=== PATIENT | female | born 1985 | race Caucasian/White ===

== ENCOUNTER 2017-06-13 07:18 | Inpatient (IN) | payer BC ==
[2017-06-13] MEDS ORDERED: Sodium Chloride 0.9% 10 ML Syringe FLUSH PRN (07:48)
[2017-06-13] MEDS ORDERED: Lactated Ringers 1,000 ML IV SCH (08:00)
[2017-06-13] MEDS ORDERED: Lidocaine 1% 50 ML MDV INJECT ONE (09:19)
[2017-06-13] MEDS ORDERED: Oxytocin/Lactated Ringers 10 UNIT/1,000 ML BAG IV SCH ×2 (09:30→09:45)
[2017-06-13] MEDS ORDERED: Nalbuphine 20 MG/1 ML Amp IVPUSH ONE (16:38)
[2017-06-13] MEDS ORDERED: Nalbuphine 20 MG/1 ML Amp ONE (16:40)
[2017-06-13] MEDS ORDERED: Witch Hazel Medicated Pads 100/Jar TOP PRN (17:50)
[2017-06-13] MEDS ORDERED: Lanolin 100% Cream 7 GM Tube TOP PRN (17:50)
[2017-06-13] MEDS ORDERED: Docusate Sodium 100 MG Cap PO PRN (17:50)
[2017-06-13] MEDS ORDERED: Benzocaine/Menthol 20%-0.5% Spray 56 GM Canister TOP PRN (17:50)
[2017-06-13] MEDS: Ibuprofen 600 MG Tab PO PRN ×2 (18:09→23:37)
[2017-06-14] MEDS: Ibuprofen 600 MG Tab PO PRN (06:48)
--- NOTE | 2017-06-14 07:12 | PCM.DCSUM1 ---
Discharge Summary - Hospital Course Brief History: Admitted for induction of labor. Routine delivery - Discharge Data Discharge Date: 06/14/17 Discharge Disposition: Home, Self-Care 01 Condition: Good - Patient Instructions Diet: Usual Diet as Tolerated Activity: No Strenuous Activities Driving: May Drive Today Notify Provider of: Fever, Increased Pain, Swelling and Redness, Drainage, Nausea and/or Vomiting - Discharge Plan Home Medications: Home Meds Pnv No.122/Iron/Folic Acid [ Multi Tablet] 1 each PO DAILY 05/11/17 [ History] Referrals: Elysia Castañeda MD [Primary Care Provider] - (5-6 weeks) - Discharge Summary/Plan Comment DC Time >30 min.: No - General Info Date of Service: 06/14/17 Functional Status: Reports: Pain Controlled - Review of Systems General: Reports: No Symptoms HEENT: Reports: No Symptoms Pulmonary: Reports: No Symptoms Cardiovascular: Reports: No Symptoms Gastrointestinal: Reports: No Symptoms Genitourinary: Reports: No Symptoms Musculoskeletal: Reports: No Symptoms Skin: Reports: No Symptoms Neurological: Reports: No Symptoms Psychiatric: Reports: No Symptoms - Patient Data Vitals - Most Recent: Last Vital Signs Temp 36.8 C 06/14/17 04:00 Pulse 69 06/14/17 03:48 Resp 16 06/14/17 04:00 BP 112/75 06/14/17 03:48 Pulse Ox 98 06/14/17 03:48 Weight - Most Recent: 84.822 kg Lab Results - Last 24 hrs: Laboratory Results - last 24 hr 06/13/17 06/13/17 Range/Units 08:00 08:00 WBC 6.61 (3.98-10.04) K/mm3 RBC 3.82 L (3.98-5.22) M/mm3 Hgb 10.7 L (11.2-15.7) gm/L Hct 32.3 L (34.1-44.9) % MCV 84.6 (79.4-94.8) fl MCH 28.0 (25.6-32.2) pg MCHC 33.1 (32.2-35.5) g/dl RDW Std Deviation 40.4 (36.4-46.3) fL Plt Count 154 L (182-369) K/mm3 MPV 11.7 (9.4-12.3) fl Blood Type A POSITIVE Gel Antibody Screen Negative Med Orders - Current: Current Medications Benzocaine/Menthol (Dermoplast Pain Relief [place]) 0 gm TOP ASDIRECTED PRN PRN Reason: Perineal Comfort Measure Last Admin: 06/13/17 18:10 Dose: 1 applic Docusate Sodium (Colace) 100 mg PO BID PRN PRN Reason: Constipation Emollient Ointment (Lansinoh Hpa) 0 gm TOP ASDIRECTED PRN PRN Reason: Sore Nipples Ibuprofen (Motrin) 600 mg PO Q6H PRN PRN Reason: Mild pain or fever Last Admin: 06/14/17 06:48 Dose: 600 mg Witch Nasreen (Tucks) 1 pad TOP ASDIRECTED PRN PRN Reason: Hemorrhoid pain Last Admin: 06/13/17 18:10 Dose: 1 applic Discontinued Medications Lactated Ringer's (Ringers, Lactated) 1,000 mls @ 100 mls/hr IV ASDIRECTED BRENNAN Last Admin: 06/13/17 09:52 Dose: 100 mls/hr Oxytocin/Lactated Ringer's (Pitocin In Lr 10 Units/1,000 Ml) 10 unit in 1,000 mls @ 500 mls/hr IV TITRATE BRENNAN PRN Reason: Protocol Oxytocin/Lactated Ringer's (Pitocin In Lr 10 Units/1,000 Ml) 10 unit in 1,000 mls @ 12 mls/hr IV TITRATE BRENNAN; 2 MUNITS/MIN PRN Reason: Protocol Last Titration: 06/13/17 16:54 Dose: 3 munits/min, 18 mls/hr Lidocaine HCl (Xylocaine 1%) 50 ml INJECT ONETIME ONE Stop: 06/13/17 09:20 Last Admin: 06/14/17 06:20 Dose: Not Given Nalbuphine HCl (Nubain) 10 mg IVPUSH ONETIME ONE Stop: 06/13/17 16:39 Last Admin: 06/13/17 16:47 Dose: 10 mg Nalbuphine HCl (Nubain) Confirm Administered Dose 20 mg .ROUTE .STK-MED ONE Stop: 06/13/17 16:41 Last Admin: 06/14/17 06:20 Dose: Not Given Sodium Chloride (Saline Flush) 10 ml FLUSH ASDIRECTED PRN PRN Reason: Keep Vein Open - Exam General: Reports: Alert, Oriented HEENT: Reports: Pupils Equal, Pupils Reactive, EOMI, Mucous Membr. Moist/[place] Neck: Reports: Supple Lungs: Reports: Clear to Auscultation, Normal Respiratory Effort Cardiovascular: Reports: Regular Rate, Regular Rhythm GI/Abdominal Exam: Normal Bowel Sounds, Soft, Non-Tender, No Organomegaly, No Distention, No Abnormal Bruit, No Mass, Pelvis Stable (Female) Exam: Normal External Exam, Normal Speculum Exam, Normal Bimanual Exam Back Exam: Reports: Normal Inspection, Full Range of Motion Extremities: Normal Inspection, Normal Range of Motion, Non-Tender, No Pedal Edema, Normal Capillary Refill Skin: Reports: Warm, Dry, Intact Wound/Incisions: Reports: Healing Well Neurological: Reports: No New Focal Deficit Psy/Mental Status: Reports: Alert, Normal Affect, Normal Mood *Q Meaningful Use (DIS) - VTE *Q VTE Criteria *Q: - Stroke *Q Stroke Criteria *Q: - AMI *Q AMI Criteria *Q:
[2017-06-14 12:12] VITALS: BP 117/76
--- NOTE | 2017-07-04 08:39 | PCM.LDHP ---
L&D History of Present Illness - General Date of Service: 06/13/17 Admit Problem/Dx: Admission Diagnosis/Problem Admission Diagnosis/Problem Labor without complication Source of Information: Patient History Limitations: Reports: No Limitations - History of Present Illness Introduction:: 32 year old female here for induction of labor. Pain Score: 3 Improves with: Reports: None Worsens with: Reports: None Associated Symptoms: Reports: N - Related Data Allergies/Adverse Reactions: Allergies Allergy/AdvReac Type Severity Reaction Status Date / Time No Known Allergies Allergy Verified 05/11/17 13:18 Home Medications: Home Meds Pnv No.122/Iron/Folic Acid [ Multi Tablet] 1 each PO DAILY 05/11/17 [ History] Past Medical History - Past Health History Medical/Surgical History: Denies Medical/Surgical History Respiratory History: Reports: Asthma [employer] History: Reports: Psychiatric History: Reports: Anxiety, Depression Hematologic History: Reports: Anemia Other Hematologic History: Anemia in childhood Social & Family History - Family History Family Medical History: Noncontributory - Tobacco Use Smoking Status *Q: Former Smoker Years of Tobacco use: 1 Packs/Tins Daily: 1 Used Tobacco, but Quit: Yes Month Tobacco Last Used: 10/2016 - Caffeine Use Caffeine Use: Reports: Coffee - Recreational Drug Use Recreational Drug Use: No - Living Situation & Occupation Living situation: Reports: , with Family Occupation: Employed H&P Review of Systems - Review of Systems: Review Of Systems: See Below General: Reports: No Symptoms HEENT: Reports: No Symptoms Pulmonary: Reports: No Symptoms Cardiovascular: Reports: No Symptoms Gastrointestinal: Reports: No Symptoms Genitourinary: Reports: No Symptoms Musculoskeletal: Reports: No Symptoms Skin: Reports: No Symptoms Psychiatric: Reports: No Symptoms Neurological: Reports: No Symptoms Hematologic/Lymphatic: Reports: No Symptoms Immunologic: Reports: No Symptoms L&D Exam - Exam Exam: See Below - Vital Signs Vital Signs: Last Vital Signs Temp 36.7 C 06/14/17 11:54 Pulse 84 06/14/17 11:54 Resp 16 06/14/17 11:54 BP 117/76 06/14/17 11:54 Pulse Ox 97 06/14/17 11:54 Weight: 84.822 kg - OB Specific Contraction Intensity: Mild to Moderate Movement: Active Heart Tones: Present Heart Rate (FHR) Variability: Moderate (6-25 bmp) Presentation: Vertex - Turner Score Turner Score Cervix Position: Midposition Turner Score Consistency: Medium Turner Score Effacement: 51-70% Turner Score Dilation: 3-4 cm - Exam General: Alert, Oriented HEENT: PERRLA, Conjunctiva Clear, EACs Clear, EOMI, Hearing Intact, Mucosa Moist & [place], Nares Patent, Normal Nasal Septum, Posterior Pharynx Clear, TMs Clear Neck: Supple, Trachea Midline Lungs: Clear to Auscultation, Normal Respiratory Effort Cardiovascular: Regular Rate, Regular Rhythm GI/Abdominal Exam: Normal Bowel Sounds, Soft, Non-Tender, No Organomegaly, No Distention, No Abnormal Bruit, No Mass, Pelvis Stable Rectal Exam: Normal Exam, Normal Rectal Tone Genitourinary: Normal external exam, Normal bimanual exam, Normal speculum exam Back Exam: Normal Inspection, Full Range of Motion Extremities: Normal Inspection, Normal Range of Motion, Non-Tender, No Pedal Edema, Normal Capillary Refill Skin: Warm, Dry, Intact Neurological: Cranial Nerves Intact, Reflexes Equal Bilateral Psychiatric: Alert, Normal Affect, Normal Mood - Patient Data Result Diagrams: 06/13/17 08:00 Problem List Initiated/Reviewed/Updated: Yes Assessment/Plan Comment:: Term induction. anesthesia per patient request. Anticipate unless otherwise indicated.
== END 2017-06-14 18:07 | disposition home or self-care (01) | DRG 560 ==
LOC: JD.OB 07:18 → OBSVTOIN 17:12
PROVIDERS: ADMIT Obstetrics & Gynecology; ATTEND Obstetrics & Gynecology
PROC: 10E0XZZ Delivery of Products of Conception, External Approach (ICD-10-PCS; principal; 2017-06-13)
PROC: 3E033VJ Introduction of Other Hormone into Peripheral Vein, Percutaneous Approach (ICD-10-PCS; 2017-06-13)
PROC: 10907ZC Drainage of Amniotic Fluid, Therapeutic from Products of Conception, Via Natural or Artificial Opening (ICD-10-PCS; 2017-06-13)
DX: O80 Encounter for full-term uncomplicated delivery (principal)
CPT/HCPCS: 36415; 59409; 85027; 86762; 86850; 86900; 86901; A9270-GY; J2300; J2590; J7120

== ENCOUNTER 2021-12-08 16:01 | Observation (INO) | payer BC ==
[2021-12-08] MEDS ORDERED: Nalbuphine 10 MG/1 ML Vial IVPUSH PRN (16:16)
[2021-12-08] MEDS ORDERED: Sodium Chloride 0.9% 10 ML Syringe FLUSH PRN (16:16)
[2021-12-08] MEDS ORDERED: Lactated Ringers 1,000 ML IV SCH (16:30)
[2021-12-08] MEDS ORDERED: Misoprostol 200 MCG Tab VAG ONE (17:32)
[2021-12-08 18:26] VITALS: BP 114/66; PULSE 94
[2021-12-08] MEDS: Misoprostol 200 MCG Tab VAG SCH (20:56)
[2021-12-08] MEDS ORDERED: Sodium Chloride 0.9% 10 ML Syringe FLUSH SCH (21:00)
[2021-12-08] MEDS ORDERED: oxyCODONE 5 MG Tab PO PRN (23:04)
[2021-12-09] MEDS ORDERED: diphenhydrAMINE 50 MG/ML SDV IVPUSH PRN (00:06)
[2021-12-09] MEDS ORDERED: ePHEDrine 50 MG/ML SDV IVPUSH PRN (00:06)
[2021-12-09] MEDS ORDERED: fentaNYL 100 MCG/2 ML SDV EPIDUR PRN (00:06)
[2021-12-09] MEDS ORDERED: Bupivacaine/fentaNYL/NS 100 ML Bag EPIDUR PRN (00:06)
[2021-12-09] MEDS: Misoprostol 200 MCG Tab VAG SCH ×2 (00:57→02:50)
[2021-12-09] MEDS ORDERED: Acetaminophen 325 MG Tab PO ONE (02:42)
[2021-12-09] MEDS ORDERED: Bupivacaine 0.25% 10 ML SDV ONE (05:00)
[2021-12-09] MEDS ORDERED: Witch Hazel Medicated Pads 40/Jar TOP PRN (11:21)
[2021-12-09] MEDS ORDERED: Benzocaine/Menthol 20%-0.5% Spray 78 GM Cannister TOP PRN (11:21)
[2021-12-09] MEDS ORDERED: Acetaminophen 325 MG Tab PO PRN (11:21)
[2021-12-09] MEDS ORDERED: Ibuprofen 600 MG Tab PO PRN (11:21)
[2021-12-09] MEDS ORDERED: Hydrocortisone Acetate 25 MG Supp RECTAL PRN (11:21)
[2021-12-09] MEDS ORDERED: Measles, Mumps & Rubella Vaccine 0.5 ML SDV SUBCUT ONE (11:30)
== END 2021-12-09 09:15 | disposition home or self-care (01) ==
LOC: JD.OBCHECK 16:01 → JD.OB 16:08 → JD.OBCHECK 16:27
PROVIDERS: ADMIT Obstetrics & Gynecology; ATTEND Obstetrics & Gynecology
DX: O03.9 Complete or unspecified spontaneous abortion without complication (principal); Z87.891 Personal history of nicotine dependence; Z86.59 Personal history of other mental and behavioral disorders; Z20.822 Contact with and (suspected) exposure to COVID-19
CPT/HCPCS: 36415; 85025; 86850; 86900; 86901; 87635; 96374; A9270; G0378; J1200; J3010; J3490; J7120; 01967; U0002